=== PATIENT | female | born 1995 | race Caucasian/White ===

== ENCOUNTER 2019-02-06 09:15 | Emergency (ER) | payer OTHER ==
[~2019-02-06] VITALS: Ht 154.9 cm; Wt 72.6 kg
[2019-02-06] MEDS ORDERED: ZOFRAN ODT SL STA (09:35)
[2019-02-06 09:38] VITALS: BP 146/82
--- NOTE | 2019-02-06 09:38 | ER.PDOC ---
General Chief Complaint: Requesting Medical Care Stated Complaint: VOMITING,RIGHT SIDE PAIN Time seen by MD: 10:00 Source: patient Exam Limitations: no limitations History of Present Illness Timing/Duration: 4-6 hours Severity/Quality: mild Radiation: no radiation Associated Symptoms: diarrhea, nausea/vomiting Exacerbated by: food Relieved By: nothing Past Medical History Medical History: no pertinent history Family History Significant Family History: no pertinent family hx Social History Alcohol Use: sober Reviewed Nursing Reviewed: Vital Signs, Abn. Noted Constitutional: no symptoms reported All Other Systems: Reviewed and Negative Physical Exam General Appearance: No Apparent Distress, WD/WN HEENT: PERRL/EOMI, Normal ENT Inspection, TMs Normal, Pharynx Normal Neck: Non-Tender, Full Range of Motion, Supple, Normal Inspection Respiratory: chest non-tender, lungs clear, normal breath sounds, no respiratory distress, no accessory muscle use Cardiovascular: Normal Peripheral Pulses, Regular Rate, Rhythm, No Edema, No Gallop, No JVD, No Murmur Gastrointestinal: Normal Bowel Sounds, Soft, Tenderness (RUQ) Extremities: Normal Range of Motion, Non-Tender, Normal Inspection, No Pedal Edema, No Calf Tenderness, Normal Capillary Refill, Pelvis Stable Neurologic/Psychiatric: liaison planner II-XII NML as Tested, No Motor/Sensory Deficits, Alert, Normal Mood/Affect, Oriented x 3 Skin: Normal Color, Warm/Dry Lymphatic: No Adenopathy Results/Orders Results/Orders Orders - FRANCI CANO MD Cbc With Auto Diff (02/06/19 09:33) Comprehensive Metabolic Panel (02/06/19 09:33) Amylase (02/06/19 09:33) Lipase (02/06/19 09:33) Helicobacter Pylori (02/06/19 09:33) PT (02/06/19 09:33) Partial Thromboplastin Time. (02/06/19 09:33) Hcg Qualitative Serum (02/06/19 09:33) Urinalysis (02/06/19 09:33) Us Gallbladder (02/06/19 09:33) Consult/PCP Time Consult/PCP Called: 11:44 Consult/PCP: DR FUNG Departure Time of Disposition: 11:11 Disposition: 01 HOME, SELF-CARE Impression: Primary Impression: Gall stones Condition: Improved Referrals: PCP,UNKNOWN (PCP) PRIMARY CARE PROVIDER Duration or Time Spent with Pa: 1 HR FRANCI CANO MD Feb 06, 2019 09:38
[2019-02-06 09:46] LABS: BILIRUBIN,URINE NEGATIVE (NEGATIVE); UROBILINOGEN,URINE NORMAL (NEGATIVE)
[2019-02-06] MEDS ORDERED: TORADOL ONE (09:46)
[2019-02-06] MEDS ORDERED: ZOFRAN ODT ONE (09:46)
[2019-02-06 09:49] LABS: BASOPHIL % 0.2 % (0.0-0.2); EOSINOPHIL # 0.1 10^3/uL (0.0-0.2); EOSINOPHIL % 0.9 % (0.0-5.0); HEMOGLOBIN 14.4 g/dL (12.0-15.0); LYMPHOCYTES # 1.8 10^3/uL (1.0-4.8); LYMPHOCYTES % 20.6 % (24.0-44.0); MEAN CELL HGB 31.2 pg (26-34); MEAN CELL HGB CONCENTRATION 35.1 g/dL (33-37); MEAN CORP VOLUME 88.7 fL (78-100); MEAN PLATELET VOLUME 10.6 fL (7.8-11.0); MONOCYTES # 0.4 10^3/uL (0.3-0.8); MONOCYTES % 4.8 % (5.0-12.0); NEUTROPHIL # 6.2 10^3/uL (1.8-7.7); NEUTROPHILS % 73.4 % (41.0-85.0); RED CELL DISTRIBUTION WIDTH 12.5 % (11.5-14.5); WHITE BLOOD CELL 8.5 10^3/uL (4.5-11.0)
[2019-02-06 09:53] LABS: APPEARANCE,URINE SLIGHTLY CLOUDY (CLEAR); UA COLOR YELLOW (YELLOW)
[2019-02-06] MEDS ORDERED: TORADOL IM ONE (10:00)
[2019-02-06 10:02] LABS: HCG QUALITATIVE -RESTRICTLAB NEGATIVE (NEGATIVE)
[2019-02-06 10:03] LABS: CARBON DIOXIDE 27.7 mmol/L (20.0-32)
[2019-02-06 10:04] LABS: CALCIUM 9.5 mg/dL (8.4-10.5)
[2019-02-06 10:38] VITALS: BP 139/67
--- NOTE | 2019-02-06 11:00 | DIREP ---
PROCEDURE:US ABDOMEN LIMITED(SINGLE ORGAN,QUAD) COMPARISON:None. INDICATIONS:ruq pain, N/V/D FINDINGS: LIVER:Normal hepatic parenchymal architecture. BILIARY:Multiple layering stones and sludge in the gallbladder. No gallbladder wall thickening or pericholecystic fluid. Common bile duct measures 4 mm. Positive sonographic Villafuerte sign. PANCREAS:Visualized due to bowel gas. RIGHT KIDNEY:Normal. OTHER:Negative. No ascites is identified. CONCLUSION: Innumerable small stones and layering sludge in the gallbladder with positive sonographic Villafuerte sign. No gallbladder wall thickening or pericholecystic fluid. If pain persists a dedicated nuclear medicine hepatobiliary scan may be beneficial. Dictated by: Vinod Hansen MD on 02/06/2019 at 10:57 AM
[2019-02-06 11:59] VITALS: BP 139/90
[2019-02-06 12:07] VITALS: BP 139/90
== END 2019-02-06 11:59 | disposition home or self-care (01) ==
LOC: ER 09:15
DX: K80.20 Calculus of gallbladder without cholecystitis without obstruction (principal)
CPT/HCPCS: 36415; 76705; 80053; 81000; 82150; 83690; 84703; 85025; 85610; 85730; 86677; 87086; 96372; 99285; J1885; Q0162

== ENCOUNTER 2020-12-24 19:01 | Emergency (ER) | payer OTHER ==
[~2020-12-24] VITALS: Ht 154.9 cm; Wt 81.6 kg
[2020-12-24 19:21] VITALS: BP 140/76
--- NOTE | 2020-12-24 19:33 | ER.PDOC ---
General Chief Complaint: Extremities Stated Complaint: PAIN ON LEFT FOOT Time seen by MD: 19:17 Source: patient Exam Limitations: no limitations History of Present Illness Initial Comments 25-year-old white female comes in with complaint of an inversion injury to her left foot. Patient was walking down a decline when she sustained an inversion type injury to the foot. Her pain is over the proximal head of the fifth metatarsal or the distal aspect of the anterior talofibular ligament. She does not really have pain in the ankle itself. All of her pain is isolated to the mid lateral foot.She denies any injury anywhere else. Onset: just prior to arrival Where: street Severity: mild Context: twist, wearing shoes Modifying Factors: pain on movement Allergies: Coded Allergies: No Known Allergies (Unverified , 12/24/20) Past Medical History Medical History: no pertinent history Surgical History: cholecystectomy, tubal Social History Smoking: non-smoker Alcohol Use: occassionally Drug Use: none Review of Systems Musculoskeletal: see HPI All Other Systems: Reviewed and Negative Physical Exam General Appearance: Alert, No Apparent Distress Foot: tenderness, swelling, limited ROM (Patient has tenderness over the distal aspect of the anterior talofibular ligament. She has a little bit over the proximal aspect of the fifth metatarsal so we will have to rule out a possible avulsion fracture or dancer's type fracture. She has no pain in the ankle itself. She has no pain in the more proximal leg.) Ankle: nml inspection, non-tender, nml ROM, no joint swelling, skin intact Gait: antalgic gait Neuro: sensation nml, motor nml Vascular: no vascular compromise Tendons: tendon function nml Leg/Knee/Thigh: uninjured above ankle Skin: warm/dry Head/ENT: nml inspection Neck/Back: nml inspection Resp/CVS: no resp distress, lungs clear, heart sounds nml, reg. rate & rhythm Abdomen: non-tender Results/Orders Results/Orders Orders - ANNE MARIE DAVENPORT MD Xr Foot Lt (12/24/20 19:28) Vital Signs Date Time Temp Pulse Resp B/P (MAP) Pulse Ox O2 Delivery O2 Flow Rate FiO2 12/24/20 19:21 97.9 106 16 12/24/20 19:21 97.9 106 16 97 12/24/20 19:21 97.9 106 16 140/76 (97) 97 Room Air Progress Progress X-ray of her foot shows that she has a transverse fracture of the proximal fifth metatarsal of her left foot. ER DEPART Departure Time of Disposition: 19:56 Disposition: 01 HOME, SELF-CARE Impression: Primary Impression: Fracture of fifth metatarsal bone of left foot Condition: Stable Referrals: PCP,UNKNOWN (PCP) PRIMARY CARE PROVIDER Comments Toradol 10mg, one po qid prn pain, #20 Duration or Time Spent with Pa: 10m ANNE MARIE DAVENPORT MD December 24, 2020 19:33
--- NOTE | 2020-12-24 20:00 | NUR ---
WALKING BOOT PATIENT FITTED WITH MEDIUM WALKING BOOT, PMS INTACT PRIOR AND POST FITTING
--- NOTE | 2020-12-24 20:08 | DIREP ---
PROCEDURE:XRAY FOOT MIN 3 VWS-LT COMPARISON:None. INDICATIONS:inversing injury with pain over the distal TFL FINDINGS: BONES:A nondisplaced proximal 5th metatarsal fracture is present. JOINTS:Normal. SOFT TISSUES:Mild lateral soft tissue swelling. OTHER:No additional findings. CONCLUSION:Nondisplaced proximal 5th metatarsal fracture. Dictated by: Brian Harley M.D. on 12/24/2020 at 08:06 PM
[2020-12-24 20:10] VITALS: BP 133/59
== END 2020-12-24 20:10 | disposition home or self-care (01) ==
LOC: ER 19:01
DX: S92.352A Displaced fracture of fifth metatarsal bone, left foot, initial encounter for closed fracture (principal); X50.9XXA Other and unspecified overexertion or strenuous movements or postures, initial encounter; Y93.01 Activity, walking, marching and hiking; Y92.89 Other specified places as the place of occurrence of the external cause; Y99.8 Other external cause status
CPT/HCPCS: 99283; 73630-LT